=== PATIENT | male | born 1980 | race Caucasian/White ===

== ENCOUNTER 2018-11-06 22:37 | Emergency (ER) | payer OTHER ==
[~2018-11-06] VITALS: Ht 175.3 cm; Wt 76.7 kg
[2018-11-06 22:40] VITALS: BP_SYST 150
--- NOTE | 2018-11-06 22:40 | NUR ---
Patient to ER bed 8 for evaluation.
--- NOTE | 2018-11-06 22:45 | NUR ---
Patient to ER via triage for evaluation of right knee pain after falling from 3rd rung on a ladder approx 1 hour prior to arrival, patient denies LOC, denies neck or back pain. Patient able to move all extremities, but is unable to stand on right leg due to pain. Patient is awake, alert and oriented in no acute distress, vital signs stable, respirations even and unlabored, skin warm and dry to touch. Patient brought to bed 8 via wheelchair with friend at his side. Awaiting evaluation by ER MD, will continue to observe and assess.
--- NOTE | 2018-11-06 22:57 | NUR ---
ER at bedside examining patient.
--- NOTE | 2018-11-06 23:25 | NUR ---
X-ray at bedside for films
[2018-11-07 00:20] VITALS: BP_SYST 140
--- NOTE | 2018-11-07 00:20 | NUR ---
Patient given written and verbal discharge instructions and verbalizes understanding. ER MD discussed with patient the results and treatment provided. Patient in stable condition. ID arm band removed. Rx of Tylenol with Codeine, Motrin given. Patient educated on pain management and to follow up with PMD. Pain Scale 0. Opportunity for questions provided and answered. Medication side effect fact sheet provided. Patient left ER in no acute distress, able to ambulate without difficulty using crutches and tolerating long leg posterior splint. Neurovascular intact.
== END 2018-11-07 00:20 | disposition home or self-care (01) ==
LOC: SED 22:37
DX: S82.144A Nondisplaced bicondylar fracture of right tibia, initial encounter for closed fracture (principal); W11.XXXA Fall on and from ladder, initial encounter; Y93.89 Activity, other specified; Y92.89 Other specified places as the place of occurrence of the external cause; Y99.8 Other external cause status
CPT/HCPCS: 73564; 99283

== ENCOUNTER 2018-11-10 12:39 | Outpatient (CLI) | payer OTHER | END 2018-11-10 21:21 | disposition home or self-care (01) | LOC: SCT 12:39 | PROVIDERS: ATTEND Orthopaedic Surgery | DX: S82.144A Nondisplaced bicondylar fracture of right tibia, initial encounter for closed fracture (principal); X58.XXXA Exposure to other specified factors, initial encounter; Y93.89 Activity, other specified; Y92.89 Other specified places as the place of occurrence of the external cause; Y99.8 Other external cause status | CPT/HCPCS: 73700-TC ==